=== PATIENT | male | born 1995 | race African-American/Black ===

== ENCOUNTER 2018-09-14 19:54 | Emergency (ER) | payer SELFPAY ==
[~2018-09-14] VITALS: Ht 167.6 cm; Wt 90.7 kg
[2018-09-14 20:15] VITALS: BP 135/82
[2018-09-14] MEDS: ACETAMINOPHEN 500 MG TABLET PO ONE (20:30)
[2018-09-14] MEDS: predniSONE 10 MG TABLET PO ONE (20:30)
[2018-09-14] MEDS: IPRATRPIUM/ALBUTEROL 0.5/2.5MG 3 ML NEBU. NEB ONE (20:41)
[2018-09-14 20:59] LABS: INFLUENZA B PATIENT NEGATIVE (NEGATIVE)
[2018-09-14 21:00] LABS: INFLUENZA A PATIENT POSITIVE (NEGATIVE)
--- NOTE | 2018-09-14 21:41 | PHYS DOC ---
Past Medical History Past Medical History: No Pertinent History Past Surgical History: No Surgical History Alcohol Use: None Drug Use: None Adult General Chief Complaint Chief Complaint: FLU SYMPTOM HPI HPI 23 y/o male presents to ER for c/o flu like illness x3 days with nonprod. cough, MORENO, generalized body aches, N/V/D, and fatigue. Pt reports fever intermittently. Pt denies CP/palpitations, SOA, or abd pain. Review of Systems Review of Systems Constitutional: Reports fever/chills and generalized fatigue/body aches Eyes: Denies change in visual acuity, redness, or eye pain [] HENT: Reports sinus congestion/sore throat and ear pressure bilat. Denies difficulty swallowing Respiratory: Denies shortness of breath. Reports nonprod. cough Cardiovascular: Denies CP/palpitations GI: Denies abdominal pain or bloody stools. Reports N/V/D : Denies dysuria or hematuria [] Musculoskeletal: Reports body aches- denies neck/joint stiffness Integument: Denies rash or skin lesions [] Neurologic: Denies focal weakness or sensory changes. Reports diffuse MORENO- denies dizziness Endocrine: Denies polyuria or polydipsia [] All other systems were reviewed and found to be within normal limits, except as documented in this note. Current Medications Current Medications Current Medications Medications (Trade) Dose Ordered Sig/Jose Start Time Stop Time Status Last Admin Dose Admin Acetaminophen (Tylenol) 1,000 mg 1X ONCE 09/14/18 20:30 09/14/18 20:31 DC 09/14/18 20:30 1,000 MG Albuterol/ Ipratropium (Duoneb) 3 ml 1X ONCE 09/14/18 20:30 09/14/18 20:31 DC 09/14/18 20:41 3 ML Prednisone (Prednisone) 50 mg 1X ONCE 09/14/18 20:30 09/14/18 20:31 DC 09/14/18 20:30 50 MG Allergies Allergies Allergies Coded Allergies Type Severity Reaction Last Updated Verified No Known Drug Allergies 09/14/18 No Physical Exam Physical Exam Constitutional: Well developed, well nourished, no acute distress, non-toxic appearance. [] HENT: Normocephalic, atraumatic, bilateral ears normal, mucous membranes pink/dry- mild pharyngeal erythema without tonsillar swelling, no oral exudates, nose normal. [] Eyes: Pupils equal, conjunctiva normal, no discharge. [] Neck: Normal range of motion, no tenderness, supple, no stridor/gross adenopathy Cardiovascular: Heart rate regular rhythm, no murmur [] Lungs & Thorax: Diminished air movement throughout all lung swan- expiratory wheeze rt upper lobe. Less air movement in bases. Resp. equal/nonlabored. Speaking in full sentences Abdomen: Bowel sounds normal, soft, no tenderness/distention, no masses, no pulsatile masses. [] Skin: Warm, dry, no erythema, no rash. [] Back: No tenderness, no CVA tenderness. [] Extremities: No tenderness, no cyanosis, no clubbing, ROM intact, no edema. [] Neurologic: Alert and oriented X 3, normal motor function, normal sensory function, no focal deficits noted. [] Psychologic: Affect normal, judgement normal, mood normal. [] Current Patient Data Vital Signs Lab Values Laboratory Tests Test 09/14/18 20:18 Influenza Type A Antigen Positive (NEGATIVE) Influenza Type B Antigen Negative (NEGATIVE) EKG EKG [] Course & Med Decision Making Course & Med Decision Making Pertinent Labs and Imaging studies reviewed. (See chart for details) 2125: Reevaluation patient reports his symptoms have significantly improved following treatments. On reexamination patient has increased air movement throughout all lung swan and expiratory wheeze right upper lung field has subsided. Patient is in no visible distress with equal/nonlabored resp. He appears less fatigued and has been drinking fluids while in the ER- no reported episodes of V/D. Recheck of temperature 99.7 orally. Chest x-ray had been ordered however with improved symptoms patient is not wanting to have imaging done as he feels comfortable with home discharge. Discussed flu diagnosis with patient having symptoms for 3 days discussed symptomatic treatment at home with Tylenol and/or ibuprofen and increase fluid intake. Will provide patient with prescription for prednisone for 4 additional days as initial dose was provided here in the ER. Pt advised on [id number] use of ibuprofen and or Tylenol for fever control. Patient to follow-up with his primary care physician if symptoms persist or with concerns. Dragon Disclaimer Dragon Disclaimer This electronic medical record was generated, in whole or in part, using a voice recognition dictation system. Departure Departure Impression: Primary Impression: Influenza A Additional Impression: Fever Disposition: HOME, SELF-CARE Condition: STABLE Referrals: NO PCP (PCP) Patient Instructions: Fever, Influenza, Adult Additional Instructions: Drink plenty of fluids and eat well-balanced meals. Tylenol and/or ibuprofen as needed for pain and fever control as directed on container. Follow up with your primary care physician with any concerns. Problem Qualifiers STEFANO HERNANDEZ APRN Sep 14, 2018 21:41
--- NOTE | 2018-09-15 00:10 | RAD ---
CHEST PA LATERAL CLINICAL INDICATION: COUGH , FEVER COMPARISON: None FINDINGS: Heart is normal in size. Mild bilateral central peribronchial opacities. No focal consolidation. No pneumothorax or pleural effusion. Visualized bony thorax within normal limits. IMPRESSION: Findings of mild bronchitis. Electronically signed by: Rip Ham DO (09/15/2018 12:07 AM) [id number]
== END 2018-09-14 21:53 | disposition home or self-care (01) ==
LOC: ER 19:54
DX: J10.1 Influenza due to other identified influenza virus with other respiratory manifestations (principal); R50.9 Fever, unspecified
CPT/HCPCS: 71046; 87804; 94640; 99284; J7512; J7620